=== PATIENT | male | born 1955 | race Two or more races ===

== ENCOUNTER 2018-04-04 06:53 | Emergency (ER) | payer SELFPAY ==
[~2018-04-04] VITALS: Ht 167.6 cm; Wt 71.8 kg
[2018-04-04 07:03] VITALS: Ht 167.6 cm; Wt 71.8 kg
[2018-04-04 07:40] LABS: CALCIUM 9.3 mg/dL (8.5-10.1); CARBON DIOXIDE 27.1 mmol/L (21-32); CHLORIDE SERUM 96 mmol/L (98-107); CREATININE SERUM 0.9 mg/dL (0.7-1.3); GFR1 > 60 mL/min; GLUCOSE SERUM 130 mg/dL (74-106); POTASSIUM SERUM 3.4 mmol/L (3.5-5.1); SODIUM SERUM 132 mmol/L (136-145)
[2018-04-04 07:46] LABS: ALBUMIN 3.7 g/dL (3.4-5.0); ALKALINE PHOSPHATASE 79 U/L (46-116); ALT/SGPT 41 U/L (16-63); AST/SGOT 29 U/L (15-37); BILIRUBIN TOTAL 1.7 mg/dL (0.20-1.00)
[2018-04-04 07:55] LABS: TOTAL PROTEIN, SERUM 8.7 g/dL (6.4-8.2)
[2018-04-04 08:11] LABS: BASOPHIL % 0.1 % (0-2); PLATELET COUNT 286 x10^3mcL (130-400); RED CELL DISTRIBUTION WIDTH 14.5 % (11.5-14.5)
[2018-04-04 08:33] VITALS: BP 139/76
== END 2018-04-04 08:33 | disposition short-term general hospital (02) ==
LOC: ED 06:53
PROVIDERS: Emergency Medicine
DX: I62.00 Nontraumatic subdural hemorrhage, unspecified (principal); I10 Essential (primary) hypertension
CPT/HCPCS: J2765; Q0092